=== PATIENT | male | born 1970 | race Two or more races ===

== ENCOUNTER 2022-03-31 00:16 | Emergency (ER) | payer SELFPAY ==
[~2022-03-31] VITALS: Ht 170.2 cm; Wt 75.3 kg
[2022-03-31 00:40] VITALS: BP 104/71
--- NOTE | 2022-03-31 00:40 | NUR ---
[id number] FROM [address] ON FLOOR, RESPONSIVE TO PAIN STIMULI. PT TOLERATING R/A WELL WITH NO RESP DISTRESS. SAFETY MEASURES IN PLACE.
--- NOTE | 2022-03-31 00:56 | NUR ---
BS 100
--- NOTE | 2022-03-31 01:13 | NUR ---
ENDS BREAKAGE CLERK AT PT'S BEDSIDE. NOT ABLE TO DRAW BLOOD. OTHER ENDS BREAKAGE CLERK WILL TRY BLOOD DRAW.
--- NOTE | 2022-03-31 03:00 | NUR ---
Patient eloped from facility. ER MD notified.
== END 2022-03-31 03:00 | disposition left against medical advice (07) ==
LOC: ER 00:18
DX: Z53.21 Procedure and treatment not carried out due to patient leaving prior to being seen by health care provider (principal)
CPT/HCPCS: 82962-TC